=== PATIENT | female | born 1965 | race Caucasian/White ===

== ENCOUNTER 2024-01-04 05:11 | Inpatient (IN) | payer MEDICARE, SELFPAY ==
[2024-01-04] VITALS (17 sets, daily range): BP systolic 128–173; BP diastolic 74–105; PULSE 60–109; RESP 12–18; TEMP 35.9–36.6; O2SAT 93–100; BMI 21.4
--- NOTE | ~2024-01-04 | XR_ITS ---
INTRAOPERATIVE FLUOROSCOPY: CLINICAL HISTORY: 58 years old Female; LEFT IT NAIL HIP REPAIR PROCEDURE COMMENTS: Limited intraoperative fluoroscopy of the left hip was performed. CUMULATIVE DOSE: 30 mGy FLUOROSCOPY TIME: 124 seconds FINDINGS/IMPRESSION: Please refer to operative note for further details. Reviewed, dictated and finalized at location A. B OPERATOR
--- NOTE | ~2024-01-04 | XR_ITS ---
XR hip LT 2V w AP pelvis Ordering provider: Get Brady MD History: . LT HIP FRACTURE . Comparison: None. FINDINGS: BONES: Fracture of the left femoral neck adjacent to the intertrochanteric area. HIP JOINT SPACES: Bilateral narrowing of the hip joints. SACROILIAC JOINT SPACES/LUMBAR SPINE: The sacroiliac joint spaces are normal. Mild degenerative vasquez es of the visualized lower lumbar spine with postoperative changes. PUBIC SYMPHYSIS: Normal. SOFT TISSUES: Normal. IMPRESSION: Fracture left femoral neck with angulation. The angulation is about 90 degrees.. Reviewed, dictated and finalized at location A. ERY ATTENDANT IMPRESSION: Fracture left femoral neck with angulation. The angulation is about 90 degrees. .
--- NOTE | 2024-01-04 04:56 | ADMGEN ---
This patient, Indigo Alaniz, was admitted to [facility] Surg Room 316-02. Patient/family oriented to hospital policies and general routines including ID bracelet, bed and alarms, visiting hours, pain management, procedures, bathroom and other care routines, personal items, smoking policy, room service/diet, and visiting hours. Information on how to activate the Rapid Response Team has been discussed. Patient/Family are encouraged to report perceived risks to care and to ask questions if they do not understand what they are told or what they should do.
[2024-01-04] MEDS: MORPHINE SULFATE (*CRX) 2 MG/ML INJ IV PUSH ×2 (06:10→09:40)
[2024-01-04 06:14] LABS: Basophils Percent Auto 0.4 % (0.2-1.2); Eosinophils Absolute Auto 0.1 K/mm3 (0-0.3); Hemoglobin 11.9 g/dL (12.0-15.0); Immature Granulocyte Absolute 0.03 K/mm3 (0.00-0.031); Immature Granulocyte Percent A 0.6 % (0-0.5); Lymphocytes Absolute Auto 0.89 K/mm3 (0.9-3.2); Lymphocytes Percent Auto 18.1 % (18.3-44.2); Mean Corpuscular HGB Conc 32.2 g/dl (32-36); Mean Corpuscular Hemoglobin 34.4 pg (26-34); Mean Corpuscular Volume 106.9 fl (80-100); Mean Platelet Volume 9.1 fl (7.4-10.4); Monocytes Absolute Auto 0.5 K/mm3 (0.1-0.6); Monocytes Percent Auto 10.5 % (2.6-8.5); Neutrophils Absolute Auto 3.4 K/mm3 (1.3-6.7); Neutrophils Percent Auto 69.4 % (45.5-73.1); Platelet Count Result 226 k/mm3 (150-375); Red Blood Count 3.46 M/mm3 (4.2-5.4); Red Cell Distribution Width 13.2 % (11.5-14.5); White Blood Count 4.9 K/mm3 (4.5-10.0)
[2024-01-04 06:25] LABS: INR 0.9; Prothrombin Time 12.6 Seconds (11.1-14.7)
[2024-01-04 06:34] LABS: Anion Gap 10 mmol/L (4-12); Blood Urea Nitrogen 14 mg/dL (7-17); Calcium 9.2 mg/dL (8.4-10.2); Carbon Dioxide 25 mmol/L (22-30); Chloride 101 mmol/L (98-107); Estimated CRCL calculation 69 ml/min; Estimated Glomerular Filt Rate > 60; Glucose 77 mg/dL (65-110); Magnesium 1.7 mg/dL (1.6-2.3); Phosphorus 3.7 mg/dL (2.5-4.5); Potassium 4.2 mmol/L (3.4-5.0); Sodium 136 mmol/L (137-145)
[2024-01-04 06:45] LABS: Add Urine Microscopic? YES; Appearance Urine Clear (Clear); Bacteria Urine 4+ /hpf; Bilirubin Urine Negative (Negative); Blood Urine Negative (Negative); Color Urine Yellow (Yellow); Glucose Urine UA Negative (Negative); Ketones Urine Negative (Negative); Leukocyte Esterase Ur 1+ LEU/UL (Negative); Nitrate Urine Positive (Negative); Protein Urine Negative (Negative); RBC Urine 0-2 /hpf (0-2); Specific Grav Ur 1.009 (1.001-1.035); Squamous Epithelial Cell Urine None Seen /hpf (Few); Urobilinogen Urine 0.2 mg/dL (<2.0); pH Urine 5.5 (5.0-9.0)
[2024-01-04] MEDS: DEXTROSE 5%/0.45% SOD CHL 1,000 ML 100 ML IV CONT (07:03)
[2024-01-04 07:08] LABS: Macrocytosis 1+ (NORMAL); Platelet Estimate Adequate (Adequate); Schistocytes None Seen
--- NOTE | 2024-01-04 09:21 | PM.CNOR ---
Assessment and Plan Assessment and plan (1) Intertrochanteric fracture of left femur: Qualifiers: Encounter type: initial encounter Fracture type: closed Fracture alignment: displaced Qualified Code(s): S72.142A - Displaced intertrochanteric fracture of left femur, initial encounter for closed fracture Code(s): S72.142A - Displaced intertrochanteric fracture of left femur, initial encounter for closed fracture Status: Acute Assessment and Plan: Patient is a 58-year-old female who fell yesterday and sustained a displaced left intertrochanteric hip fracture. The fracture involves the medial aspect of the greater trochanter and the superior aspect of the lesser trochanter so it is categorized as an intertrochanteric hip fracture. There is mild comminution of the lesser trochanter. Her laboratory studies and urinalysis suggests that she may have a urinary tract infection. Cultures are pending. She had 4+ urine bacteria and 6-10 white blood cells per high-powered field. She has a history of lumbar fusion and has hardware in the lumbar spine posterior instrumentation with pedicle screws. Her current medications include hydrocodone 10 mg 4 times a day as needed clonazepam gabapentin citalopram atorvastatin amitriptyline losartan metoprolol omeprazole. Physical exam On exam she was alert and oriented pleasant female and fairly comfortable as long as she has not moved. The left leg is externally rotated and shortened. She has intact sensation in wiggles her toes up and down the left foot and had palpable pedal pulses. She complains of pain around the left hip and denies any other injury. There was no swelling in the lower extremity. Assessment and plan Patient has a displaced intertrochanteric left hip fracture. I have discussed options with her and I would recommend open reduction internal fixation with a trochanteric nail device for this fracture pattern. Risks of surgery were discussed with her in detail. She will require a workup for osteoporosis. Will proceed later this afternoon. History of Present Illness HPI Consult date: 01/04/24 Chief complaint: Hip fracture [facility] Family History Family History (Updated 01/04/24 @ 05:06 by Aparna Cuellar RN) Sibling Breast cancer Uterine cancer Mother Lung cancer Father Cerebrovascular accident Other Cancer Social History Social History Smoking status: Former smoker Drinks per week: 7 Do You Feel Safe in your Home?: No Lack of Transportation: No Lack of Food: Never True Current Housing: I Have Housing Concerned About Future Housing: No Difficulty Paying Gas/Electric Bills: No Difficulty Paying for Meds: No Currently Unemployed: No Education: Bachelor's Degree Difficulty w/ Childcare or Family Care: No Spiritual care concerns: No Meds Home Medications and Allergies Home Medications Medication Instructions Recorded Confirmed Type amitriptyline 10 mg tablet 10 mg PO HS 01/04/24 01/04/24 History atorvastatin 40 mg tablet 40 mg PO HS 01/04/24 01/04/24 History citalopram 20 mg tablet 20 mg PO DAILY 01/04/24 01/04/24 History clonazepam 1 mg tablet 1 mg PO BID 01/04/24 01/04/24 History gabapentin 300 mg capsule 300 mg PO TID 01/04/24 01/04/24 History hydrocodone 10 mg-acetaminophen 1 tablet PO Q6H PRN Pain 01/04/24 01/04/24 History 325 mg tablet losartan 25 mg tablet 25 mg PO DAILY 01/04/24 01/04/24 History metoprolol tartrate 25 mg tablet 25 mg PO BID 01/04/24 01/04/24 History omeprazole 20 mg capsule,delayed 20 mg PO DAILY 01/04/24 01/04/24 History release Allergies Allergy/AdvReac Type Severity Reaction Status Date / Time No Known Allergies Allergy Verified 01/04/24 05:21 Vital Signs Vital Signs - 24 hr 01/04/24 04:54 01/04/24 06:00 Temperature 36.2 C L Pulse Rate 78 Respiratory Rate 16 Blood Pressure 173/93 H Pulse Oximetry 97 Oxygen Delivery Room Air Results Labs 01/04/24 06:03 01/04/24 06:03 Labs: Abnormal lab results 01/04/24 01/04/24 Range/Units 06:03 06:17 RBC 3.46 L (4.2-5.4) M/mm3 Hgb 11.9 L (12.0-15.0) g/dL MCV 106.9 H (80-100) fl MCH 34.4 H (26-34) pg Immature Gran % (Auto) 0.6 H (0-0.5) % Lymph % (Auto) 18.1 L (18.3-44.2) % [place] % (Auto) 10.5 H (2.6-8.5) % Lymph # (Auto) 0.89 L (0.9-3.2) K/mm3 Sodium 136 L (137-145) mmol/L Urine Nitrate Positive H (Negative) Leukocyte Esterase Rfl 1+ H (Negative) JI/UL Urine WBC 6-10 H (0-3) /hpf Urine Bacteria 4+ H /hpf H & H 01/04/24 Range/Units 06:03 Hgb 11.9 L (12.0-15.0) g/dL Hct 37.0 (37.0-47.0) % Coagulation 01/04/24 Range/Units 06:03 INR 0.9 All other labs normal.
--- NOTE | 2024-01-04 09:37 | ECG_ITS ---
Test Date: 2024-01-04 09:59:07 Measurements Intervals Strang Rate: 95 P: 53 MT: 156 QRS: 55 QRSD: 86 T: 30 QT: 359 QTc: 452 Interpretive Statements SINUS RHYTHM LEFT ATRIAL ENLARGEMENT INCOMPLETE RIGHT BUNDLE BRANCH BLOCK ST DEVIATION AND MODERATE T-WAVE ABNORMALITY, CONSIDER ANT/INF ISCHEMIA BASELINE ARTIFACT- I, II, III, AVR, AVL ,AVF, V1-V6 ABNORMAL ECG No previous ECG available for comparison Electronically Signed On 01-04-2024 10:08:34 MOTION PI[employer]URE [employer]ITIC by Peter Rush D.O.
--- NOTE | 2024-01-04 09:53 | PM.IMHP ---
H&P: HPI History of Present Illness Date/Time: 01/04/24 09:53 <Matheus Guajardo MD - Last Filed: 01/04/24 18:18> Chief Complaint: Fall <Matheus Guajardo MD - Last Filed: 01/04/24 18:18> Narrative: Patient is a 58-year-old female who fell yesterday and sustained a displaced left intertrochanteric hip fracture. The fracture involves the medial aspect of the greater trochanter and the superior aspect of the lesser trochanter so it is categorized as an intertrochanteric hip fracture. There is mild comminution of the lesser trochanter. Her laboratory studies and urinalysis suggests that she may have a urinary tract infection. Cultures are pending. She had 4+ urine bacteria and 6-10 white blood cells per high-powered field. She has a history of lumbar fusion and has hardware in the lumbar spine posterior instrumentation with pedicle screws. Patient reports of performing remote Dexa scan but doesn't remember the details. Patient denies any urinary sx. <Matheus Guajardo MD - Last Filed: 01/04/24 18:18> Patient is a 58-year-old female who fell yesterday and sustained a displaced left intertrochanteric hip fracture. The fracture involves the medial aspect of the greater trochanter and the superior aspect of the lesser trochanter so it is categorized as an intertrochanteric hip fracture. There is mild comminution of the lesser trochanter. Her laboratory studies and urinalysis suggests that she may have a urinary tract infection. Cultures are pending. She had 4+ urine bacteria and 6-10 white blood cells per high-powered field. She has a history of lumbar fusion and has hardware in the lumbar spine posterior instrumentation with pedicle screws. Patient reports of performing remote Dexa scan but doesn't remember the details. Patient denies any urinary sx. <Get Brady MD - Last Filed: 01/04/24 12:46> [facility] Family History Family History: Family History Sibling Breast cancer Uterine cancer Mother Lung cancer Father Cerebrovascular accident Other Cancer <Matheus Guajardo MD - Last Filed: 01/04/24 18:18> Social History Social History: Social History Smoking status: Former smoker Drinks per week: 7 Do You Feel Safe in your Home?: No Lack of Transportation: No Lack of Food: Never True Current Housing: I Have Housing Concerned About Future Housing: No Difficulty Paying Gas/Electric Bills: No Difficulty Paying for Meds: No Currently Unemployed: No Education: Bachelor's Degree Difficulty w/ Childcare or Family Care: No Spiritual care concerns: No <Matheus Guajardo MD - Last Filed: 01/04/24 18:18> Meds Home Medications and Allergies Home medications: Home Medications Medication Instructions Recorded Confirmed Type amitriptyline 10 mg tablet 10 mg PO HS 01/04/24 01/04/24 History atorvastatin 40 mg tablet 40 mg PO HS 01/04/24 01/04/24 History citalopram 20 mg tablet 20 mg PO DAILY 01/04/24 01/04/24 History clonazepam 1 mg tablet 1 mg PO BID 01/04/24 01/04/24 History gabapentin 300 mg capsule 300 mg PO TID 01/04/24 01/04/24 History hydrocodone 10 mg-acetaminophen 1 tablet PO Q6H PRN Pain 01/04/24 01/04/24 History 325 mg tablet losartan 25 mg tablet 25 mg PO DAILY 01/04/24 01/04/24 History metoprolol tartrate 25 mg tablet 25 mg PO BID 01/04/24 01/04/24 History omeprazole 20 mg capsule,delayed 20 mg PO DAILY 01/04/24 01/04/24 History release <Matheus Guajardo MD - Last Filed: 01/04/24 18:18> Allergies/Adverse reactions: Allergies Allergy/AdvReac Type Severity Reaction Status Date / Time No Known Allergies Allergy Verified 01/04/24 11:49 <Matheus Guajardo MD - Last Filed: 01/04/24 18:18> Vital Signs Vital Signs - 24 hr 01/04/24 04:54 01/04/24 06:00 Temperature 97.1 F L Pulse Rate 78 Respiratory Rate 16 Blood Pressure 173/93 H Pulse Oximetry 97 Oxygen Delivery Room Air <Matheus Guajardo MD - Last Filed: 01/04/24 18:18> H&P: Results Labs Labs: Short CBC 01/04/24 Range/Units 06:03 WBC 4.9 (4.5-10.0) K/mm3 Hgb 11.9 L (12.0-15.0) g/dL Hct 37.0 (37.0-47.0) % Plt Count 226 (150-375) k/mm3 BMP 01/04/24 06:03 Sodium 136 L Potassium 4.2 Chloride 101 Carbon Dioxide 25 BUN 14 Creatinine 0.70 Glucose 77 Calcium 9.2 Urine 01/04/24 Range/Units 06:17 Urine Color Yellow (Yellow) Urine Appearance Clear (Clear) Urine pH 5.5 (5.0-9.0) Ur Specific [place] 1.009 (1.001-1.035) Urine Protein Negative (Negative) mg/dL Urine Glucose (UA) Negative (Negative) mg/dL <Matheus Guajardo MD - Last Filed: 01/04/24 18:18> Assessment and Plan Assessment and plan (1) Intertrochanteric fracture of left femur: Qualifiers: Encounter type: initial encounter Fracture alignment: displaced Fracture type: closed Qualified Code(s): S72.142A - Displaced intertrochanteric fracture of left femur, initial encounter for closed fracture <Matheus Guajardo MD - Last Filed: 01/04/24 18:18> Code(s): S72.142A - Displaced intertrochanteric fracture of left femur, initial encounter for closed fracture <Matheus Guajardo MD - Last Filed: 01/04/24 18:18> Status: Acute <Matheus Guajardo MD - Last Filed: 01/04/24 18:18> Assessment and Plan: Patient is a 58-year-old female who fell yesterday and sustained a displaced left intertrochanteric hip fracture. The fracture involves the medial aspect of the greater trochanter and the superior aspect of the lesser trochanter so it is categorized as an intertrochanteric hip fracture. There is mild comminution of the lesser trochanter. Patient has a displaced intertrochanteric left hip fracture. Open reduction internal fixation with a trochanteric nail device for this fracture pattern. <Matheus Guajardo MD - Last Filed: 01/04/24 18:18> (2) Osteoporosis: Code(s): M81.0 - Age-related osteoporosis without current pathological fracture <Matheus Guajardo MD - Last Filed: 01/04/24 18:18> Status: Acute <Matheus Guajardo MD - Last Filed: 01/04/24 18:18> Assessment and Plan: Fragility fracture from a fall DEXA as OP Consider Bisphosphonates upto 5 years if oral or 3 years if IV OR Consider Denosumab injections x 6 months <Matheus Guajardo MD - Last Filed: 01/04/24 18:18> (3) UTI (urinary tract infection): Code(s): N39.0 - Urinary tract infection, site not specified <Matheus Guajardo MD - Last Filed: 01/04/24 18:18> Status: Acute <Matheus Guajardo MD - Last Filed: 01/04/24 18:18> Assessment and Plan: UA reviewed UC obtained. No sx warrants no tx <Matheus Guajardo MD - Last Filed: 01/04/24 18:18> Hospitalist MIPS Advance Care Plan I have confirmed that the patient's Advanced Care Plan is present, code status is documented, or surrogate decision maker is listed in patient medical record.: Yes <Matheus Guajardo MD - Last Filed: 01/04/24 18:18> Medication Reconciliation I have utilized all available resources to obtain, update and review the patients current medications (includes all prescriptions, OTC, herbals, cannabis, and nutritional supplements).: Yes <Matheus Guajardo MD - Last Filed: 01/04/24 18:18>
--- NOTE | 2024-01-04 10:48 | PC.NURSE ---
To OR per [ ], IV [ ]. Report given to [DEVIN ].
[2024-01-04] MEDS: VANCOMYCIN 1,000 MG/NS 250 ML BAG 250 MG IVPB (11:00)
[2024-01-04] MEDS: TRANEXAMIC ACID 1,000MG/ISO100 1,000 MG/100 ML BAG 200 MG IVPB (11:47)
--- NOTE | 2024-01-04 12:07 | WPDHPUPDATE1 ---
History and Physical Update Update Date/Time: 01/04/24 12:07 History and Physical has been reviewed, including an updated exam of the patient. There are NO changes in the patient's condition. Risks, benefits, and alternatives have been discussed and questions answered. Patient agrees to proceed with procedure.
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
[2024-01-04] MEDS: ceFAZolin 2 GM/D5W 50 ML 2 GM/50 ML BAG IVPB ×2 (12:53→18:04)
[2024-01-04] MEDS: LACTATED RINGERS 1,000 ML 30 ML IV CONT (14:25)
--- NOTE | 2024-01-04 14:48 | P.OP_ITS ---
Procedure Note - Detailed Date of Procedure 01/04/24 Pre-op Diagnosis Left intertrochanteric hip fracture Post-op Diagnosis Same Procedure Performed Open reduction internal fixation left intertrochanteric hip fracture with Arthrex short trochanteric nail device with distal interlocking Surgeon Get Brady MD Sales Contracts Analyst Danielle Anesthesia General Description of Procedure Patient was brought to the operating room and general anesthesia was administered. She was transferred to the fracture table. The left hip and thigh was carefully scrubbed with the chlorhexidine clot. She was given 2 g Ancef weight based vancomycin 1 g of TXA preoperatively. The left foot was padded and placed in the traction boot the right hip flexed and abducted out of the way. The left leg was placed in neutral rotation and traction was applied and fluoro was brought in to assess the reduction which was adequate and out to length without significant translational displacement. The hip and thigh was prepped with DuraPrep cover with the shower curtain and A 2 in incision was made proximal to greater trochanter guide pin inserted the tip greater trochanter into the canal the starter Reamer used to create an entrance hole and the canal reamed to 11 mm which gave significant chatter. We chose the 9 mm 130 degree Arthrex nail which was inserted fully under manual pressure. A guide pin was inserted at the center of the femoral head on AP and lateral views. I felt that she was too small to accommodate a anti rotation screw particularly with her higher than average valgus neck angle. A 90 mm lag screw was placed to about 8 mm from subchondral bone inserted flush with the lateral cortex locked to the nadia with locking sleeve and the activation pin was removed and a distal interlocking screw was placed in the static mode without difficulty. The wounds were irrigated with antibiotic solution. The skin was closed with 2 subcutaneous Vicryl and juan. EBL was about 100 cc. She was transferred to postop recovery room in stable condition. Due to her asymptomatic ST depression noted preoperatively by Anesthesia I have ordered a 12 lead EKG to make sure there are no changes and will order a series of troponin levels to make sure there is no evidence of cardiac injury. [facility] Billing Surgery - Charge Forward: Surgery Billing (Trochanteric nail fixation right intertrochanteric hip fracture.)
--- NOTE | 2024-01-04 14:54 | ECG_ITS ---
Test Date: 2024-01-04 15:05:07 Measurements Intervals Joes Rate: 79 P: 73 AL: 158 QRS: 42 QRSD: 88 T: 9 QT: 409 QTc: 471 Interpretive Statements SINUS RHYTHM POSSIBLE LEFT ATRIAL ENLARGEMENT INCOMPLETE RIGHT BUNDLE BRANCH BLOCK ST-T WAVE ABNORMALITY IN ANTERIOR LEADS- CONSIDER ISCHEMIA BASELINE ARTIFACT- I, II, III, AVR, AVL, AVF, V1-V6 ABNORMAL ECG Compared to ECG 01/04/2024 09:59:07 NO SIGNIFICANT CHANGE Electronically Signed On 01-04-2024 15:10:55 LAUNCHING PAD MECHANIC by Peter Rush D.O.
[2024-01-04] MEDS: fentaNYL CITRATE INJ (*CRX) 100 MCG/2 ML VIAL 25 MCG IV PUSH ×5 (14:55→15:24)
--- NOTE | 2024-01-04 15:26 | SUR.PHASEI ---
ST depression present on monitor and according to [employer] monitor was reading ST depression in OR as well. Per Dr Jose Antonio SHAFFER troponin series and stat EKG ordered.
[2024-01-04 15:42] LABS: Troponin I 0.022 ng/mL (0.000-0.034)
--- NOTE | 2024-01-04 16:17 | PC.NURSE ---
Returned from OR per [ ]. Report received from [TRAVIS].
[2024-01-04] MEDS: HYDROcodone/acetaminophen (*CRX) 10-325 MG TABLET 1 TAB PO ×2 (16:48→22:11)
[2024-01-04] MEDS: SENNA/DOCUSATE SODIUM TABLET 2 TAB PO (16:50)
[2024-01-04] MEDS: clonazePAM (*CRX) 0.5 MG TABLET 1 MG PO (16:50)
[2024-01-04] MEDS: METOPROLOL TARTRATE 25 MG TABLET PO (16:51)
[2024-01-04] MEDS: SODIUM CHLORIDE 0.9% IV 1,000 ML 125 ML IV CONT (16:52)
[2024-01-04] MEDS: GABAPENTIN 300 MG CAPSULE PO (16:52)
[2024-01-04 17:15] LABS: Troponin I < 0.012 ng/mL (0.000-0.034)
[2024-01-04 20:21] LABS: Troponin I < 0.012 ng/mL (0.000-0.034)
[2024-01-04] MEDS: AMITRIPTYLINE HCL 10 MG TABLET PO (20:42)
[2024-01-04] MEDS: ATORVASTATIN 40 MG TABLET PO (20:42)
[2024-01-04] MEDS: VANCOMYCIN 1,000 MG/NS 250 ML 1,000 MG/250 ML BAG 250 MG IVPB (22:39)
[2024-01-05] VITALS (14 sets, daily range): BP systolic 108–176; BP diastolic 53–90; PULSE 72–95; RESP 16–18; TEMP 36.3–36.7; O2SAT 92–100
[2024-01-05] MEDS: ceFAZolin 2 GM/D5W 50 ML 2 GM/50 ML BAG IVPB ×2 (03:00→11:13)
[2024-01-05] MEDS: HYDROcodone/acetaminophen (*CRX) 10-325 MG TABLET 1 TAB PO ×4 (04:24→23:54)
[2024-01-05 06:45] LABS: Basophils Percent Auto 0.2 % (0.2-1.2); Hematocrit 27.5 % (37.0-47.0); Hemoglobin 8.5 g/dL (12.0-15.0); Immature Granulocyte Absolute 0.04 K/mm3 (0.00-0.031); Immature Granulocyte Percent A 0.8 % (0-0.5); Lymphocytes Absolute Auto 0.32 K/mm3 (0.9-3.2); Lymphocytes Percent Auto 6.8 % (18.3-44.2); Mean Corpuscular HGB Conc 30.9 g/dl (32-36); Mean Corpuscular Hemoglobin 33.6 pg (26-34); Mean Corpuscular Volume 108.7 fl (80-100); Mean Platelet Volume 9.5 fl (7.4-10.4); Monocytes Absolute Auto 0.6 K/mm3 (0.1-0.6); Monocytes Percent Auto 12.3 % (2.6-8.5); Neutrophils Absolute Auto 3.8 K/mm3 (1.3-6.7); Neutrophils Percent Auto 79.9 % (45.5-73.1); Platelet Count Result 219 k/mm3 (150-375); Red Blood Count 2.53 M/mm3 (4.2-5.4); Red Cell Distribution Width 12.9 % (11.5-14.5); White Blood Count 4.7 K/mm3 (4.5-10.0)
[2024-01-05 07:07] LABS: Alanine Aminotransferase 13 U/L (6-35); Albumin Level 3.2 g/dL (3.5-5.1); Alkaline Phosphatase 70 U/L (38-126); Anion Gap 8 mmol/L (4-12); Aspartate Amino Transferase 27 U/L (14-36); Bilirubin,Total 0.3 mg/dL (0.2-1.3); Blood Urea Nitrogen 11 mg/dL (7-17); Calcium 8.2 mg/dL (8.4-10.2); Carbon Dioxide 24 mmol/L (22-30); Chloride 103 mmol/L (98-107); Estimated CRCL calculation 79 ml/min; Estimated Glomerular Filt Rate > 60; Glucose 118 mg/dL (65-110); Potassium 4.3 mmol/L (3.4-5.0); Sodium 135 mmol/L (137-145)
[2024-01-05 08:06] LABS: Large Platelets Present; Platelet Estimate Adequate (Adequate)
[2024-01-05 08:08] LABS: Hypochromasia 1+; Target Cells 1+
[2024-01-05 08:09] LABS: Schistocytes None Seen
[2024-01-05] MEDS: polyethylene glycoL 3350 17 GM POWD.PACK PO (08:53)
[2024-01-05] MEDS: CITALOPRAM HYDROBROMIDE 20 MG TABLET PO (08:54)
[2024-01-05] MEDS: APIXABAN 2.5 MG TABLET PO ×2 (08:54→20:29)
[2024-01-05] MEDS: SENNA/DOCUSATE SODIUM TABLET 2 TAB PO (08:54)
[2024-01-05] MEDS: METOPROLOL TARTRATE 25 MG TABLET PO ×2 (08:54→17:12)
[2024-01-05] MEDS: GABAPENTIN 300 MG CAPSULE PO ×3 (08:54→17:12)
[2024-01-05] MEDS: PANTOPRAZOLE 40 MG TABLET PO (08:54)
[2024-01-05] MEDS: clonazePAM (*CRX) 0.5 MG TABLET 1 MG PO ×2 (08:55→17:12)
[2024-01-05] MEDS: LOSARTAN POTASSIUM 25 MG TABLET PO (08:55)
--- NOTE | 2024-01-05 10:21 | WPDANESPN ---
Anes - Prog Note Post-Op Date/Time: 01/05/24 10:21 Cardiovascular status: normal Respiratory status: normal Airway patency: baseline Mental status: baseline Post-Op hydration status: normal Vital Signs: Last Vital Signs Temp 36.5 C 01/05/24 05:57 Pulse 95 01/05/24 08:54 Resp 16 01/05/24 05:57 BP 108/53 L 01/05/24 05:57 Pulse Ox 92 01/05/24 05:57 O2 Del Method Room Air 01/05/24 09:00 O2 Flow Rate 8 01/04/24 14:55 Pain Score (VAS): 06/07 I/O: Intake & Output 01/04/24 01/05/24 01/05/24 23:59 07:59 15:59 Intake Total 920 1000 240 Output Total 900 Balance 920 100 240 Laboratory Tests 01/05/24 06:23 01/05/24 06:23 01/04/24 01/04/24 01/04/24 06:03 14:57 16:43 WBC RBC Hgb Hct MCV MCH MCHC RDW Plt Count MPV Immature Gran % (Auto) Neut % (Auto) Lymph % (Auto) [place] % (Auto) Eos % (Auto) Baso % (Auto) Lymph # (Auto) [place] # (Auto) Eos # (Auto) Baso # (Auto) Abs Immat Gran (auto) Absolute Neuts (auto) Absolute Nucleated RBC Nucleated RBC % Platelet Estimate Large Platelets Hypochromasia Target Cells Schistocytes Sodium Potassium Chloride Carbon Dioxide Anion Gap BUN Creatinine Estim Creat Clear Calc Estimated GFR Glucose Calcium Total Bilirubin AST ALT Alkaline Phosphatase Troponin I 0.022 < 0.012 D Total Protein Albumin Blood Type A Positive Antibody Screen Negative 01/04/24 01/05/24 19:49 06:23 WBC 4.7 RBC 2.53 L Hgb 8.5 L D Hct 27.5 L MCV 108.7 H MCH 33.6 MCHC 30.9 L RDW 12.9 Plt Count 219 MPV 9.5 Immature Gran % (Auto) 0.8 H Neut % (Auto) 79.9 H Lymph % (Auto) 6.8 L [place] % (Auto) 12.3 H Eos % (Auto) 0.0 Baso % (Auto) 0.2 Lymph # (Auto) 0.32 L [place] # (Auto) 0.6 Eos # (Auto) 0.0 Baso # (Auto) 0.0 Abs Immat Gran (auto) 0.04 H Absolute Neuts (auto) 3.8 Absolute Nucleated RBC 0.000 Nucleated RBC % 0.0 Platelet Estimate Adequate Large Platelets Present Hypochromasia 1+ Target Cells 1+ Schistocytes None seen Sodium 135 L Potassium 4.3 Chloride 103 Carbon Dioxide 24 Anion Gap 8 BUN 11 Creatinine 0.60 L Estim Creat Clear Calc 79 Estimated GFR > 60 Glucose 118 H Calcium 8.2 L Total Bilirubin 0.3 AST 27 ALT 13 Alkaline Phosphatase 70 Troponin I < 0.012 Total Protein 6.0 L Albumin 3.2 L Blood Type Antibody Screen Post-procedural complaints: none Patient Feedback: Patient satisfied with anesthetic care.
[2024-01-05] MEDS: VANCOMYCIN 1,000 MG/NS 250 ML 1,000 MG/250 ML BAG 150 MG IVPB (11:52)
--- NOTE | 2024-01-05 14:17 | PM.PNORT ---
Progress Note: A&P Assessment and Plan (1) Intertrochanteric fracture of left femur: Qualifiers: Encounter type: initial encounter Fracture type: closed Fracture alignment: displaced Qualified Code(s): S72.142A - Displaced intertrochanteric fracture of left femur, initial encounter for closed fracture Code(s): S72.142A - Displaced intertrochanteric fracture of left femur, initial encounter for closed fracture Status: Acute Assessment and Plan: Patient is postop day 1. After trochanteric nail fixation of left intertrochanteric hip fracture. She is quite comfortable at rest. She notes that she is unable to actively lift the left leg off the bed and I explained to her that this is due to the fact that the ileus flexes the hip is attached to the lesser trochanter which has fracture lines in it so that will be too painful until it is healed which will be about 6 week Her wounds are dry. Her hemoglobin today is 8.5. We will check labs again tomorrow. Nothing is available with respect to the urine culture yet which is unusual. She is considering going to the [facility] a intensive physical therapy very beneficial for her given her pre-injury limitations. Subjective Subjective Date/Time Seen: 01/05/24 14:17 Objective Data Vital Signs Vital Signs: Vital Signs - 24 hr 01/04/24 14:25 01/04/24 14:40 01/04/24 14:55 Temperature 36.4 C Pulse Rate 89 88 83 Respiratory Rate 13 14 12 Blood Pressure 169/105 H 172/102 H 168/105 H Pulse Oximetry 100 100 100 Oxygen Delivery Simple Face Mask Simple Face Mask Simple Face Mask Oxygen Flow Rate 8 8 8 01/04/24 15:10 01/04/24 15:25 01/04/24 15:40 Temperature Pulse Rate 83 88 88 Respiratory Rate 12 15 16 Blood Pressure 161/93 H 151/90 H 144/89 H Pulse Oximetry 98 94 96 Oxygen Delivery Room Air Room Air Room Air Oxygen Flow Rate 01/04/24 15:55 01/04/24 16:10 01/04/24 16:20 Temperature 36.6 C 35.9 C L Pulse Rate 91 89 95 Respiratory Rate 14 14 16 Blood Pressure 147/90 H 151/88 H 154/88 H Pulse Oximetry 93 94 100 Oxygen Delivery Room Air Room Air Oxygen Flow Rate 01/04/24 16:51 01/04/24 16:35 01/04/24 17:57 Temperature 36.2 C L 36.0 C L Pulse Rate 98 92 72 Respiratory Rate 17 18 Blood Pressure 151/74 H 144/75 H Pulse Oximetry 98 95 Oxygen Delivery Oxygen Flow Rate 01/04/24 20:00 01/04/24 22:15 01/05/24 00:00 Temperature 36.6 C Pulse Rate 60 75 73 Respiratory Rate 16 Blood Pressure 159/85 H Pulse Oximetry 94 Oxygen Delivery Oxygen Flow Rate 01/05/24 04:00 01/04/24 21:45 01/05/24 01:57 Temperature 36.5 C Pulse Rate 73 72 Respiratory Rate 18 Blood Pressure 147/77 H Pulse Oximetry 94 95 Oxygen Delivery Room Air Oxygen Flow Rate 01/05/24 05:57 01/05/24 08:29 01/05/24 08:54 Temperature 36.5 C Pulse Rate 85 95 Respiratory Rate 16 Blood Pressure 108/53 L Pulse Oximetry 92 Oxygen Delivery Room Air Oxygen Flow Rate 01/05/24 09:00 01/05/24 08:00 01/05/24 08:52 Temperature Pulse Rate 89 Respiratory Rate Blood Pressure Pulse Oximetry Oxygen Delivery Room Air Room Air Oxygen Flow Rate 01/05/24 09:57 01/05/24 12:00 01/05/24 13:57 Temperature 36.7 C 36.3 C L Pulse Rate 88 90 74 Respiratory Rate 18 18 Blood Pressure 176/90 H 139/88 Pulse Oximetry 99 97 Oxygen Delivery Oxygen Flow Rate Intake/Output Intake/Output: Intake & Output 01/02/24 01/03/24 01/04/24 01/05/24 23:59 23:59 23:59 23:59 Intake Total 1220 1530 Output Total 900 Balance 1220 630 Meds/Results Medications: Active Medications Generic Name Dose Route Start Last Admin Trade Name Freq PRN Reason Stop Dose Admin Hydrocodone Bitart/Acetaminophen 1 tab 01/04/24 16:12 01/05/24 11:13 Hydrocodone/Acetaminophen (*Crx) 10-325 Mg Tablet PO 1 tab Q6H PRN Administration Pain Al Hydrox/Mg Hydrox/Simethicone 30 ml 01/04/24 05:11 Mag Hydrox/Al Hydrox/Simeth 30 Ml Udc PO QID PRN Dyspepsia Amitriptyline HCl 10 mg 01/04/24 21:00 01/04/24 20:42 Amitriptyline Hcl 10 Mg Tablet PO 10 mg HS GLENN Administration Apixaban 2.5 mg 01/05/24 09:00 01/05/24 08:54 Apixaban 2.5 Mg Tablet PO 2.5 mg Q12HR GLENN Administration Atorvastatin Calcium 40 mg 01/04/24 21:00 01/04/24 20:42 Atorvastatin 40 Mg Tablet PO 40 mg HS GLENN Administration Citalopram Hydrobromide 20 mg 01/05/24 09:00 01/05/24 08:54 Citalopram Hydrobromide 20 Mg Tablet PO 20 mg DAILY GLENN Administration Clonazepam 1 mg 01/04/24 17:00 01/05/24 08:55 Clonazepam (*Crx) 0.5 Mg Tablet PO 1 mg BID GLENN Administration Gabapentin 300 mg 01/04/24 17:00 01/05/24 12:37 Gabapentin 300 Mg Capsule PO 300 mg TID GLENN Administration Sodium Chloride 1,000 mls @ 125 mls/hr 01/04/24 16:12 01/05/24 04:24 Normal Saline Iv IV CONT Infused .Q8H GLENN Infusion Losartan Potassium 25 mg 01/05/24 09:00 01/05/24 08:55 Losartan Potassium 25 Mg Tablet PO 25 mg DAILY GLENN Administration Magnesium Hydroxide 30 ml 01/04/24 05:11 Magnesium Hydroxide Susp 30 Ml Udc PO DAILY PRN Constipation Metoprolol Tartrate 25 mg 01/04/24 17:00 01/05/24 08:54 Metoprolol Tartrate 25 Mg Tablet PO 25 mg BID GLENN Administration Morphine Sulfate 2 mg 01/04/24 05:11 01/04/24 09:40 Morphine Sulfate (*Crx) 2 Mg/Ml Inj IV PUSH 2 mg Q4H PRN Administration Pain Rated 7-10 Naloxone HCl 0.1 mg 01/04/24 16:12 Naloxone Hcl 0.4 Mg/Ml Vial IV PUSH Q2M PRN Opiate Reversal Pantoprazole Sodium 40 mg 01/05/24 09:00 01/05/24 08:54 Pantoprazole 40 Mg Tablet PO 40 mg QAM GLENN Administration Polyethylene Glycol 17 gm 01/05/24 09:00 01/05/24 08:53 Polyethylene Glycol 3350 17 Gm Powd.Pack PO 17 gm QAM GELNN Administration Senna/Docusate Sodium 2 tab 01/04/24 17:00 01/05/24 08:54 Senna/Docusate Sodium Tablet PO 2 tab BID GLENN Administration Radiology Results: ITS Impressions Hip/Pelvis X-Ray 01/04/24 08:19 IMPRESSION: Fracture left femoral neck with angulation. The angulation is about 90 degrees.. Labs Labs: Laboratory Results - last 24 hr 01/04/24 01/04/24 01/04/24 14:57 16:43 19:49 WBC RBC Hgb Hct MCV MCH MCHC RDW Plt Count MPV Immature Gran % (Auto) Neut % (Auto) Lymph % (Auto) [place] % (Auto) Eos % (Auto) Baso % (Auto) Lymph # (Auto) [place] # (Auto) Eos # (Auto) Baso # (Auto) Abs Immat Gran (auto) Absolute Neuts (auto) Absolute Nucleated RBC Nucleated RBC % Platelet Estimate Large Platelets Hypochromasia Target Cells Schistocytes Sodium Potassium Chloride Carbon Dioxide Anion Gap BUN Creatinine Estim Creat Clear Calc Estimated GFR Glucose Calcium Total Bilirubin AST ALT Alkaline Phosphatase Troponin I 0.022 < 0.012 D < 0.012 Total Protein Albumin 01/05/24 06:23 WBC 4.7 RBC 2.53 L Hgb 8.5 L D Hct 27.5 L MCV 108.7 H MCH 33.6 MCHC 30.9 L RDW 12.9 Plt Count 219 MPV 9.5 Immature Gran % (Auto) 0.8 H Neut % (Auto) 79.9 H Lymph % (Auto) 6.8 L [place] % (Auto) 12.3 H Eos % (Auto) 0.0 Baso % (Auto) 0.2 Lymph # (Auto) 0.32 L [place] # (Auto) 0.6 Eos # (Auto) 0.0 Baso # (Auto) 0.0 Abs Immat Gran (auto) 0.04 H Absolute Neuts (auto) 3.8 Absolute Nucleated RBC 0.000 Nucleated RBC % 0.0 Platelet Estimate Adequate Large Platelets Present Hypochromasia 1+ Target Cells 1+ Schistocytes None seen Sodium 135 L Potassium 4.3 Chloride 103 Carbon Dioxide 24 Anion Gap 8 BUN 11 Creatinine 0.60 L Estim Creat Clear Calc 79 Estimated GFR > 60 Glucose 118 H Calcium 8.2 L Total Bilirubin 0.3 AST 27 ALT 13 Alkaline Phosphatase 70 Troponin I Total Protein 6.0 L Albumin 3.2 L
--- NOTE | 2024-01-05 14:45 | P.PNIM_ITS ---
Progress Note: A&P Assessment and Plan (1) Intertrochanteric fracture of left femur: Qualifiers: Encounter type: initial encounter Fracture alignment: displaced Fracture type: closed Qualified Code(s): S72.142A - Displaced intertrochanteric fracture of left femur, initial encounter for closed fracture Code(s): S72.142A - Displaced intertrochanteric fracture of left femur, initial encounter for closed fracture Status: Acute Assessment and Plan: Patient is a 58-year-old female who fell yesterday and sustained a displaced left intertrochanteric hip fracture. The fracture involves the medial aspect of the greater trochanter and the superior aspect of the lesser trochanter so it is categorized as an intertrochanteric hip fracture. There is mild comminution of the lesser trochanter. Patient has a displaced intertrochanteric left hip fracture. Open reduction internal fixation with a trochanteric nail device for this fracture pattern. (2) Osteoporosis: Code(s): M81.0 - Age-related osteoporosis without current pathological fracture Status: Acute Assessment and Plan: Fragility fracture from a fall DEXA as OP Consider Bisphosphonates upto 5 years if oral or 3 years if IV OR Consider Denosumab injections x 6 months (3) UTI (urinary tract infection): Code(s): N39.0 - Urinary tract infection, site not specified Status: Acute Assessment and Plan: UA reviewed UC obtained. No sx and not undergoing any urological procedure , so doesn't warrants any tx Subjective Date/time seen: 01/05/24 14:45 Interval history: Patient is postop day 1 S/P trochanteric nail fixation of left intertrochanteric hip fracture. Patient isn't having any urinary symptoms. Does not warrant any treatment since she is not undergoing any urological procedure. Objective Data Vital Signs Vital Signs: Vital Signs - 24 hr 01/04/24 14:55 01/04/24 15:10 01/04/24 15:25 Temperature Pulse Rate 83 83 88 Respiratory Rate 12 12 15 Blood Pressure 168/105 H 161/93 H 151/90 H Pulse Oximetry 100 98 94 Oxygen Delivery Simple Face Mask Room Air Room Air Oxygen Flow Rate 8 01/04/24 15:40 01/04/24 15:55 01/04/24 16:10 Temperature 98 F Pulse Rate 88 91 89 Respiratory Rate 16 14 14 Blood Pressure 144/89 H 147/90 H 151/88 H Pulse Oximetry 96 93 94 Oxygen Delivery Room Air Room Air Room Air Oxygen Flow Rate 01/04/24 16:20 01/04/24 16:51 01/04/24 16:35 Temperature 96.7 F L 97.2 F L Pulse Rate 95 98 92 Respiratory Rate 16 17 Blood Pressure 154/88 H 151/74 H Pulse Oximetry 100 98 Oxygen Delivery Oxygen Flow Rate 01/04/24 17:57 01/04/24 20:00 01/04/24 22:15 Temperature 96.8 F L 97.9 F Pulse Rate 72 60 75 Respiratory Rate 18 16 Blood Pressure 144/75 H 159/85 H Pulse Oximetry 95 94 Oxygen Delivery Oxygen Flow Rate 01/05/24 00:00 01/05/24 04:00 01/04/24 21:45 Temperature Pulse Rate 73 73 Respiratory Rate Blood Pressure Pulse Oximetry 94 Oxygen Delivery Room Air Oxygen Flow Rate 01/05/24 01:57 01/05/24 05:57 01/05/24 08:29 Temperature 97.7 F 97.7 F Pulse Rate 72 85 Respiratory Rate 18 16 Blood Pressure 147/77 H 108/53 L Pulse Oximetry 95 92 Oxygen Delivery Room Air Oxygen Flow Rate 01/05/24 08:54 01/05/24 09:00 01/05/24 08:00 Temperature Pulse Rate 95 89 Respiratory Rate Blood Pressure Pulse Oximetry Oxygen Delivery Room Air Oxygen Flow Rate 01/05/24 08:52 01/05/24 09:57 01/05/24 12:00 Temperature 98.0 F Pulse Rate 88 90 Respiratory Rate 18 Blood Pressure 176/90 H Pulse Oximetry 99 Oxygen Delivery Room Air Oxygen Flow Rate 01/05/24 13:57 Temperature 97.4 F L Pulse Rate 74 Respiratory Rate 18 Blood Pressure 139/88 Pulse Oximetry 97 Oxygen Delivery Oxygen Flow Rate Intake/Output Intake/Output: Intake & Output 01/02/24 01/03/24 01/04/24 01/05/24 23:59 23:59 23:59 23:59 Intake Total 1220 1530 Output Total 900 Balance 1220 630 Meds/Results Medications: Active Medications Generic Name Dose Route Start Last Admin Trade Name Freq PRN Reason Stop Dose Admin Hydrocodone Bitart/Acetaminophen 1 tab 01/04/24 16:12 01/05/24 11:13 Hydrocodone/Acetaminophen (*Crx) 10-325 Mg Tablet PO 1 tab Q6H PRN Administration Pain Al Hydrox/Mg Hydrox/Simethicone 30 ml 01/04/24 05:11 Mag Hydrox/Al Hydrox/Simeth 30 Ml Udc PO QID PRN Dyspepsia Amitriptyline HCl 10 mg 01/04/24 21:00 01/04/24 20:42 Amitriptyline Hcl 10 Mg Tablet PO 10 mg HS GLENN Administration Apixaban 2.5 mg 01/05/24 09:00 01/05/24 08:54 Apixaban 2.5 Mg Tablet PO 2.5 mg Q12HR GLENN Administration Atorvastatin Calcium 40 mg 01/04/24 21:00 01/04/24 20:42 Atorvastatin 40 Mg Tablet PO 40 mg HS GLENN Administration Citalopram Hydrobromide 20 mg 01/05/24 09:00 01/05/24 08:54 Citalopram Hydrobromide 20 Mg Tablet PO 20 mg DAILY GLENN Administration Clonazepam 1 mg 01/04/24 17:00 01/05/24 08:55 Clonazepam (*Crx) 0.5 Mg Tablet PO 1 mg BID GLENN Administration Gabapentin 300 mg 01/04/24 17:00 01/05/24 12:37 Gabapentin 300 Mg Capsule PO 300 mg TID GLENN Administration Sodium Chloride 1,000 mls @ 125 mls/hr 01/04/24 16:12 01/05/24 04:24 Normal Saline Iv IV CONT Infused .Q8H GLENN Infusion Losartan Potassium 25 mg 01/05/24 09:00 01/05/24 08:55 Losartan Potassium 25 Mg Tablet PO 25 mg DAILY GLENN Administration Magnesium Hydroxide 30 ml 01/04/24 05:11 Magnesium Hydroxide Susp 30 Ml Udc PO DAILY PRN Constipation Metoprolol Tartrate 25 mg 01/04/24 17:00 01/05/24 08:54 Metoprolol Tartrate 25 Mg Tablet PO 25 mg BID GLENN Administration Morphine Sulfate 2 mg 01/04/24 05:11 01/04/24 09:40 Morphine Sulfate (*Crx) 2 Mg/Ml Inj IV PUSH 2 mg Q4H PRN Administration Pain Rated 7-10 Naloxone HCl 0.1 mg 01/04/24 16:12 Naloxone Hcl 0.4 Mg/Ml Vial IV PUSH Q2M PRN Opiate Reversal Pantoprazole Sodium 40 mg 01/05/24 09:00 01/05/24 08:54 Pantoprazole 40 Mg Tablet PO 40 mg QAM GLENN Administration Polyethylene Glycol 17 gm 01/05/24 09:00 01/05/24 08:53 Polyethylene Glycol 3350 17 Gm Powd.Pack PO 17 gm QAM GLENN Administration Senna/Docusate Sodium 2 tab 01/04/24 17:00 01/05/24 08:54 Senna/Docusate Sodium Tablet PO 2 tab BID GLENN Administration Radiology Results: ITS Impressions Hip/Pelvis X-Ray 01/04/24 08:19 IMPRESSION: Fracture left femoral neck with angulation. The angulation is about 90 degrees.. Labs Labs: Laboratory Results - last 24 hr 01/04/24 01/04/24 01/04/24 14:57 16:43 19:49 WBC RBC Hgb Hct MCV MCH MCHC RDW Plt Count MPV Immature Gran % (Auto) Neut % (Auto) Lymph % (Auto) [place] % (Auto) Eos % (Auto) Baso % (Auto) Lymph # (Auto) [place] # (Auto) Eos # (Auto) Baso # (Auto) Abs Immat Gran (auto) Absolute Neuts (auto) Absolute Nucleated RBC Nucleated RBC % Platelet Estimate Large Platelets Hypochromasia Target Cells Schistocytes Sodium Potassium Chloride Carbon Dioxide Anion Gap BUN Creatinine Estim Creat Clear Calc Estimated GFR Glucose Calcium Total Bilirubin AST ALT Alkaline Phosphatase Troponin I 0.022 < 0.012 D < 0.012 Total Protein Albumin 01/05/24 06:23 WBC 4.7 RBC 2.53 L Hgb 8.5 L D Hct 27.5 L MCV 108.7 H MCH 33.6 MCHC 30.9 L RDW 12.9 Plt Count 219 MPV 9.5 Immature Gran % (Auto) 0.8 H Neut % (Auto) 79.9 H Lymph % (Auto) 6.8 L [place] % (Auto) 12.3 H Eos % (Auto) 0.0 Baso % (Auto) 0.2 Lymph # (Auto) 0.32 L [place] # (Auto) 0.6 Eos # (Auto) 0.0 Baso # (Auto) 0.0 Abs Immat Gran (auto) 0.04 H Absolute Neuts (auto) 3.8 Absolute Nucleated RBC 0.000 Nucleated RBC % 0.0 Platelet Estimate Adequate Large Platelets Present Hypochromasia 1+ Target Cells 1+ Schistocytes None seen Sodium 135 L Potassium 4.3 Chloride 103 Carbon Dioxide 24 Anion Gap 8 BUN 11 Creatinine 0.60 L Estim Creat Clear Calc 79 Estimated GFR > 60 Glucose 118 H Calcium 8.2 L Total Bilirubin 0.3 AST 27 ALT 13 Alkaline Phosphatase 70 Troponin I Total Protein 6.0 L Albumin 3.2 L Hospitalist MIPS Advance Care Plan I have confirmed that the patient's Advanced Care Plan is present, code status is documented, or surrogate decision maker is listed in patient medical record.: Yes Medication Reconciliation I have utilized all available resources to obtain, update and review the patients current medications (includes all prescriptions, OTC, herbals, cannabis, and nutritional supplements).: Yes
[2024-01-05] MEDS: AMITRIPTYLINE HCL 10 MG TABLET PO (20:29)
[2024-01-05] MEDS: MORPHINE SULFATE (*CRX) 2 MG/ML INJ IV PUSH (20:29)
[2024-01-05] MEDS: ATORVASTATIN 40 MG TABLET PO (20:29)
[2024-01-06] VITALS (11 sets, daily range): BP systolic 117–152; BP diastolic 78–87; PULSE 73–90; RESP 12–16; TEMP 36.2–36.4; O2SAT 95–98
[2024-01-06] MEDS: HYDROcodone/acetaminophen (*CRX) 10-325 MG TABLET 1 TAB PO ×3 (06:06→18:00)
[2024-01-06 07:07] LABS: Basophils Percent Auto 0.3 % (0.2-1.2); Eosinophils Absolute Auto 0.1 K/mm3 (0-0.3); Eosinophils Percent Auto 1.7 % (0-4.4); Hematocrit 26.3 % (37.0-47.0); Hemoglobin 8.1 g/dL (12.0-15.0); Immature Granulocyte Absolute 0.02 K/mm3 (0.00-0.031); Immature Granulocyte Percent A 0.6 % (0-0.5); Lymphocytes Absolute Auto 1.02 K/mm3 (0.9-3.2); Lymphocytes Percent Auto 28.3 % (18.3-44.2); Mean Corpuscular HGB Conc 30.8 g/dl (32-36); Mean Corpuscular Volume 110.5 fl (80-100); Mean Platelet Volume 9.6 fl (7.4-10.4); Monocytes Absolute Auto 0.6 K/mm3 (0.1-0.6); Monocytes Percent Auto 15.8 % (2.6-8.5); Neutrophils Absolute Auto 1.9 K/mm3 (1.3-6.7); Neutrophils Percent Auto 53.3 % (45.5-73.1); Platelet Count Result 208 k/mm3 (150-375); Red Blood Count 2.38 M/mm3 (4.2-5.4); Red Cell Distribution Width 13.3 % (11.5-14.5); White Blood Count 3.6 K/mm3 (4.5-10.0)
[2024-01-06 07:23] LABS: Alanine Aminotransferase 8 U/L (6-35); Albumin Level 2.9 g/dL (3.5-5.1); Alkaline Phosphatase 59 U/L (38-126); Anion Gap 3 mmol/L (4-12); Aspartate Amino Transferase 23 U/L (14-36); Bilirubin,Total 0.3 mg/dL (0.2-1.3); Blood Urea Nitrogen 10 mg/dL (7-17); Calcium 8.6 mg/dL (8.4-10.2); Carbon Dioxide 27 mmol/L (22-30); Chloride 104 mmol/L (98-107); Estimated CRCL calculation 79 ml/min; Estimated Glomerular Filt Rate > 60; Glucose 93 mg/dL (65-110); Potassium 4.1 mmol/L (3.4-5.0); Sodium 134 mmol/L (137-145)
[2024-01-06 07:44] LABS: Hypochromasia 1+; Macrocytosis 1+ (NORMAL); Platelet Estimate Adequate (Adequate); Schistocytes None Seen
--- NOTE | 2024-01-06 08:03 | P.PNOP_ITS ---
Subjective Subjective Date/Time Seen: 01/06/24 08:03 Interval history: Postop day 2 patient is alert. She is afebrile vital signs are stable. Hemoglobin this morning was 8.1. Patient is maintaining blood pressure well. She is not tachycardic. She has been up moving around with therapy and is having no symptoms from the anemia. She is having some mild discomfort but her chronic pain medication seems to be working well. Dressings are dry. Care coordination is working on rehab facility placement. Patient will remain partial weight-bearing for the 1st 6 weeks. I did order her a vitamin-D 25 hydroxy this morning. We will check another CBC tomorrow morning Objective Data Vital Signs Vital Signs: Vital Signs - 24 hr 01/05/24 08:29 01/05/24 08:54 01/05/24 09:00 Temperature Pulse Rate 95 Respiratory Rate Blood Pressure Pulse Oximetry Oxygen Delivery Room Air Room Air 01/05/24 08:52 01/05/24 09:57 01/05/24 12:00 Temperature 98.0 F Pulse Rate 88 90 Respiratory Rate 18 Blood Pressure 176/90 H Pulse Oximetry 99 Oxygen Delivery Room Air 01/05/24 13:57 01/05/24 16:00 01/05/24 17:12 Temperature 97.4 F L Pulse Rate 74 85 84 Respiratory Rate 18 Blood Pressure 139/88 Pulse Oximetry 97 Oxygen Delivery 01/05/24 17:57 01/05/24 20:13 01/05/24 20:30 Temperature 97.8 F 98 F Pulse Rate 85 75 77 Respiratory Rate 18 16 Blood Pressure 137/75 126/78 Pulse Oximetry 98 100 Oxygen Delivery 01/06/24 00:00 01/06/24 04:00 01/06/24 06:00 Temperature 97.5 F L Pulse Rate 80 73 78 Respiratory Rate 12 Blood Pressure 138/82 Pulse Oximetry 98 Oxygen Delivery Intake/Output Intake/Output: Intake & Output 01/03/24 01/04/24 01/05/24 01/06/24 23:59 23:59 23:59 23:59 Intake Total 1220 1770 350 Output Total 1500 550 Balance 1220 270 -200 Meds/Results Medications: Active Medications Generic Name Dose Route Start Last Admin Trade Name Freq PRN Reason Stop Dose Admin Hydrocodone Bitart/Acetaminophen 1 tab 01/04/24 16:12 01/06/24 06:06 Hydrocodone/Acetaminophen (*Crx) 10-325 Mg Tablet PO 1 tab Q6H PRN Administration Pain Al Hydrox/Mg Hydrox/Simethicone 30 ml 01/04/24 05:11 Mag Hydrox/Al Hydrox/Simeth 30 Ml Udc PO QID PRN Dyspepsia Amitriptyline HCl 10 mg 01/04/24 21:00 01/05/24 20:29 Amitriptyline Hcl 10 Mg Tablet PO 10 mg HS GLENN Administration Apixaban 2.5 mg 01/05/24 09:00 01/05/24 20:29 Apixaban 2.5 Mg Tablet PO 2.5 mg Q12HR GLENN Administration Atorvastatin Calcium 40 mg 01/04/24 21:00 01/05/24 20:29 Atorvastatin 40 Mg Tablet PO 40 mg HS GLENN Administration Citalopram Hydrobromide 20 mg 01/05/24 09:00 01/05/24 08:54 Citalopram Hydrobromide 20 Mg Tablet PO 20 mg DAILY GLENN Administration Clonazepam 1 mg 01/04/24 17:00 01/05/24 17:12 Clonazepam (*Crx) 0.5 Mg Tablet PO 1 mg BID GLENN Administration Gabapentin 300 mg 01/04/24 17:00 01/05/24 17:12 Gabapentin 300 Mg Capsule PO 300 mg TID GLENN Administration Losartan Potassium 25 mg 01/05/24 09:00 01/05/24 08:55 Losartan Potassium 25 Mg Tablet PO 25 mg DAILY GLENN Administration Magnesium Hydroxide 30 ml 01/04/24 05:11 Magnesium Hydroxide Susp 30 Ml Udc PO DAILY PRN Constipation Metoprolol Tartrate 25 mg 01/04/24 17:00 01/05/24 17:12 Metoprolol Tartrate 25 Mg Tablet PO 25 mg BID GLENN Administration Morphine Sulfate 2 mg 01/04/24 05:11 01/05/24 20:29 Morphine Sulfate (*Crx) 2 Mg/Ml Inj IV PUSH 2 mg Q4H PRN Administration Pain Rated 7-10 Naloxone HCl 0.1 mg 01/04/24 16:12 Naloxone Hcl 0.4 Mg/Ml Vial IV PUSH Q2M PRN Opiate Reversal Pantoprazole Sodium 40 mg 01/05/24 09:00 01/05/24 08:54 Pantoprazole 40 Mg Tablet PO 40 mg QAM GLENN Administration Polyethylene Glycol 17 gm 01/05/24 09:00 01/05/24 08:53 Polyethylene Glycol 3350 17 Gm Powd.Pack PO 17 gm QAM GLENN Administration Senna/Docusate Sodium 2 tab 01/04/24 17:00 01/05/24 17:11 Senna/Docusate Sodium Tablet PO Not Given BID [facility] Radiology Results: ITS Impressions Hip/Pelvis X-Ray 01/04/24 08:19 IMPRESSION: Fracture left femoral neck with angulation. The angulation is about 90 degrees.. Labs Labs: Laboratory Results - last 24 hr 01/05/24 01/06/24 06:23 06:23 WBC 4.7 3.6 L RBC 2.53 L 2.38 L Hgb 8.5 L D 8.1 L Hct 27.5 L 26.3 L MCV 108.7 H 110.5 H MCH 33.6 34.0 MCHC 30.9 L 30.8 L RDW 12.9 13.3 Plt Count 219 208 MPV 9.5 9.6 Immature Gran % (Auto) 0.8 H 0.6 H Neut % (Auto) 79.9 H 53.3 Lymph % (Auto) 6.8 L 28.3 [place] % (Auto) 12.3 H 15.8 H Eos % (Auto) 0.0 1.7 Baso % (Auto) 0.2 0.3 Lymph # (Auto) 0.32 L 1.02 [place] # (Auto) 0.6 0.6 Eos # (Auto) 0.0 0.1 Baso # (Auto) 0.0 0.0 Abs Immat Gran (auto) 0.04 H 0.02 Absolute Neuts (auto) 3.8 1.9 Absolute Nucleated RBC 0.000 0.000 Nucleated RBC % 0.0 0.0 Platelet Estimate Adequate Adequate Large Platelets Present Hypochromasia 1+ 1+ Macrocytosis 1+ Target Cells 1+ Schistocytes None seen None seen Sodium 134 L Potassium 4.1 Chloride 104 Carbon Dioxide 27 Anion Gap 3 L BUN 10 Creatinine 0.60 L Estim Creat Clear Calc 79 Estimated GFR > 60 Glucose 93 Calcium 8.6 Total Bilirubin 0.3 AST 23 ALT 8 Alkaline Phosphatase 59 Total Protein 6.0 L Albumin 2.9 L
[2024-01-06] MEDS: PANTOPRAZOLE 40 MG TABLET PO (09:42)
[2024-01-06] MEDS: GABAPENTIN 300 MG CAPSULE PO ×3 (09:42→17:59)
[2024-01-06] MEDS: clonazePAM (*CRX) 0.5 MG TABLET 1 MG PO ×2 (09:42→17:59)
[2024-01-06] MEDS: SENNA/DOCUSATE SODIUM TABLET 2 TAB PO ×2 (09:42→17:59)
[2024-01-06] MEDS: CITALOPRAM HYDROBROMIDE 20 MG TABLET PO (09:42)
[2024-01-06] MEDS: METOPROLOL TARTRATE 25 MG TABLET PO ×2 (09:42→17:59)
[2024-01-06] MEDS: APIXABAN 2.5 MG TABLET PO ×2 (09:43→21:33)
[2024-01-06] MEDS: LOSARTAN POTASSIUM 25 MG TABLET PO (09:43)
[2024-01-06] MEDS: MORPHINE SULFATE (*CRX) 2 MG/ML INJ IV PUSH ×2 (09:46→13:19)
[2024-01-06 11:09] LABS: Vitamin D 25 Hydroxy 65.3 ng/mL
--- NOTE | 2024-01-06 16:29 | P.PNIM_ITS ---
Progress Note: A&P Assessment and Plan (1) Intertrochanteric fracture of left femur: Qualifiers: Encounter type: initial encounter Fracture alignment: displaced Fracture type: closed Qualified Code(s): S72.142A - Displaced intertrochanteric fracture of left femur, initial encounter for closed fracture Code(s): S72.142A - Displaced intertrochanteric fracture of left femur, initial encounter for closed fracture Status: Acute Assessment and Plan: Patient is a 58-year-old female who fell yesterday and sustained a displaced left intertrochanteric hip fracture. The fracture involves the medial aspect of the greater trochanter and the superior aspect of the lesser trochanter so it is categorized as an intertrochanteric hip fracture. There is mild comminution of the lesser trochanter. Patient has a displaced intertrochanteric left hip fracture. Open reduction internal fixation with a trochanteric nail device for this fracture pattern. (2) Osteoporosis: Code(s): M81.0 - Age-related osteoporosis without current pathological fracture Status: Acute Assessment and Plan: Fragility fracture from a fall DEXA as OP Consider Bisphosphonates upto 5 years if oral or 3 years if IV OR Consider Denosumab injections x 6 months (3) UTI (urinary tract infection): Code(s): N39.0 - Urinary tract infection, site not specified Status: Acute Assessment and Plan: UA reviewed UC obtained. No sx and not undergoing any urological procedure , so doesn't warrants any tx Subjective Date/time seen: 01/06/24 16:29 Interval history: Pending transfer to rehab. Post op day 2. No acute events were reported Objective Data Vital Signs Vital Signs: Vital Signs - 24 hr 01/05/24 17:12 01/05/24 17:57 01/05/24 20:13 Temperature 97.8 F 98 F Pulse Rate 84 85 75 Respiratory Rate 18 16 Blood Pressure 137/75 126/78 Pulse Oximetry 98 100 Oxygen Delivery 01/05/24 20:30 01/06/24 00:00 01/06/24 04:00 Temperature Pulse Rate 77 80 73 Respiratory Rate Blood Pressure Pulse Oximetry Oxygen Delivery 01/06/24 06:00 01/06/24 09:42 01/06/24 08:00 Temperature 97.5 F L Pulse Rate 78 87 Respiratory Rate 12 Blood Pressure 138/82 Pulse Oximetry 98 Oxygen Delivery Room Air 01/06/24 08:00 01/06/24 13:42 Temperature 97.2 F L Pulse Rate 85 81 Respiratory Rate 16 Blood Pressure 152/87 H Pulse Oximetry 98 Oxygen Delivery Intake/Output Intake/Output: Intake & Output 01/03/24 01/04/24 01/05/24 01/06/24 23:59 23:59 23:59 23:59 Intake Total 1220 1770 830 Output Total 1500 1200 Balance 1220 270 -370 Meds/Results Medications: Active Medications Generic Name Dose Route Start Last Admin Trade Name Freq PRN Reason Stop Dose Admin Hydrocodone Bitart/Acetaminophen 1 tab 01/04/24 16:12 01/06/24 12:02 Hydrocodone/Acetaminophen (*Crx) 10-325 Mg Tablet PO 1 tab Q6H PRN Administration Pain Al Hydrox/Mg Hydrox/Simethicone 30 ml 01/04/24 05:11 Mag Hydrox/Al Hydrox/Simeth 30 Ml Udc PO QID PRN Dyspepsia Amitriptyline HCl 10 mg 01/04/24 21:00 01/05/24 20:29 Amitriptyline Hcl 10 Mg Tablet PO 10 mg HS GLENN Administration Apixaban 2.5 mg 01/05/24 09:00 01/06/24 09:43 Apixaban 2.5 Mg Tablet PO 2.5 mg Q12HR GLENN Administration Atorvastatin Calcium 40 mg 01/04/24 21:00 01/05/24 20:29 Atorvastatin 40 Mg Tablet PO 40 mg HS GLENN Administration Citalopram Hydrobromide 20 mg 01/05/24 09:00 01/06/24 09:42 Citalopram Hydrobromide 20 Mg Tablet PO 20 mg DAILY GLENN Administration Clonazepam 1 mg 01/04/24 17:00 01/06/24 09:42 Clonazepam (*Crx) 0.5 Mg Tablet PO 1 mg BID GLENN Administration Gabapentin 300 mg 01/04/24 17:00 01/06/24 12:02 Gabapentin 300 Mg Capsule PO 300 mg TID GLENN Administration Losartan Potassium 25 mg 01/05/24 09:00 01/06/24 09:43 Losartan Potassium 25 Mg Tablet PO 25 mg DAILY GLENN Administration Magnesium Hydroxide 30 ml 01/04/24 05:11 Magnesium Hydroxide Susp 30 Ml Udc PO DAILY PRN Constipation Metoprolol Tartrate 25 mg 01/04/24 17:00 01/06/24 09:42 Metoprolol Tartrate 25 Mg Tablet PO 25 mg BID GLENN Administration Morphine Sulfate 2 mg 01/04/24 05:11 01/06/24 13:19 Morphine Sulfate (*Crx) 2 Mg/Ml Inj IV PUSH 2 mg Q4H PRN Administration Pain Rated 7-10 Naloxone HCl 0.1 mg 01/04/24 16:12 Naloxone Hcl 0.4 Mg/Ml Vial IV PUSH Q2M PRN Opiate Reversal Pantoprazole Sodium 40 mg 01/05/24 09:00 01/06/24 09:42 Pantoprazole 40 Mg Tablet PO 40 mg QAM GLENN Administration Polyethylene Glycol 17 gm 01/05/24 09:00 01/06/24 09:44 Polyethylene Glycol 3350 17 Gm Powd.Pack PO Not Given QAM GLENN Senna/Docusate Sodium 2 tab 01/04/24 17:00 01/06/24 09:42 Senna/Docusate Sodium Tablet PO 2 tab BID GLENN Administration Radiology Results: ITS Impressions Hip/Pelvis X-Ray 01/04/24 08:19 IMPRESSION: Fracture left femoral neck with angulation. The angulation is about 90 degrees.. Labs Labs: Laboratory Results - last 24 hr 01/06/24 06:23 WBC 3.6 L RBC 2.38 L Hgb 8.1 L Hct 26.3 L MCV 110.5 H MCH 34.0 MCHC 30.8 L RDW 13.3 Plt Count 208 MPV 9.6 Immature Gran % (Auto) 0.6 H Neut % (Auto) 53.3 Lymph % (Auto) 28.3 [place] % (Auto) 15.8 H Eos % (Auto) 1.7 Baso % (Auto) 0.3 Lymph # (Auto) 1.02 [place] # (Auto) 0.6 Eos # (Auto) 0.1 Baso # (Auto) 0.0 Abs Immat Gran (auto) 0.02 Absolute Neuts (auto) 1.9 Absolute Nucleated RBC 0.000 Nucleated RBC % 0.0 Platelet Estimate Adequate Hypochromasia 1+ Macrocytosis 1+ Schistocytes None seen Sodium 134 L Potassium 4.1 Chloride 104 Carbon Dioxide 27 Anion Gap 3 L BUN 10 Creatinine 0.60 L Estim Creat Clear Calc 79 Estimated GFR > 60 Glucose 93 Calcium 8.6 Total Bilirubin 0.3 AST 23 ALT 8 Alkaline Phosphatase 59 Total Protein 6.0 L Albumin 2.9 L Vitamin D 25-Hydroxy 65.3 Hospitalist MIPS Advance Care Plan I have confirmed that the patient's Advanced Care Plan is present, code status is documented, or surrogate decision maker is listed in patient medical record.: Yes Medication Reconciliation I have utilized all available resources to obtain, update and review the patients current medications (includes all prescriptions, OTC, herbals, cannabis, and nutritional supplements).: Yes
[2024-01-06] MEDS: AMITRIPTYLINE HCL 10 MG TABLET PO (21:33)
[2024-01-06] MEDS: ATORVASTATIN 40 MG TABLET PO (21:33)
[2024-01-07] VITALS (8 sets, daily range): BP systolic 140–153; BP diastolic 81–90; PULSE 74–95; RESP 14–18; TEMP 36.2–36.3; O2SAT 92–99
[2024-01-07] MEDS: HYDROcodone/acetaminophen (*CRX) 10-325 MG TABLET 1 TAB PO ×3 (00:11→11:49)
[2024-01-07 07:08] LABS: Basophils Percent Auto 0.9 % (0.2-1.2); Eosinophils Absolute Auto 0.1 K/mm3 (0-0.3); Eosinophils Percent Auto 2.3 % (0-4.4); Hemoglobin 8.4 g/dL (12.0-15.0); Immature Granulocyte Absolute 0.02 K/mm3 (0.00-0.031); Immature Granulocyte Percent A 0.5 % (0-0.5); Lymphocytes Absolute Auto 1.12 K/mm3 (0.9-3.2); Lymphocytes Percent Auto 25.2 % (18.3-44.2); Mean Corpuscular Hemoglobin 34.1 pg (26-34); Mean Corpuscular Volume 113.8 fl (80-100); Mean Platelet Volume 9.8 fl (7.4-10.4); Monocytes Absolute Auto 0.8 K/mm3 (0.1-0.6); Monocytes Percent Auto 17.1 % (2.6-8.5); Neutrophils Absolute Auto 2.4 K/mm3 (1.3-6.7); Platelet Count Result 219 k/mm3 (150-375); Red Blood Count 2.46 M/mm3 (4.2-5.4); White Blood Count 4.4 K/mm3 (4.5-10.0)
[2024-01-07 07:24] LABS: Alanine Aminotransferase 8 U/L (6-35); Alkaline Phosphatase 42 U/L (38-126); Anion Gap 2 mmol/L (4-12); Aspartate Amino Transferase 34 U/L (14-36); Bilirubin,Total 0.9 mg/dL (0.2-1.3); Blood Urea Nitrogen 11 mg/dL (7-17); Calcium 8.7 mg/dL (8.4-10.2); Carbon Dioxide 26 mmol/L (22-30); Chloride 103 mmol/L (98-107); Estimated CRCL calculation 93 ml/min; Estimated Glomerular Filt Rate > 60; Glucose 92 mg/dL (65-110); Potassium 4.9 mmol/L (3.4-5.0); Sodium 131 mmol/L (137-145)
[2024-01-07 08:35] LABS: Crenated RBC 1+; Macrocytosis 1+ (NORMAL); Platelet Estimate Adequate (Adequate); Schistocytes Rare
[2024-01-07] MEDS: LOSARTAN POTASSIUM 25 MG TABLET PO (08:36)
[2024-01-07] MEDS: CITALOPRAM HYDROBROMIDE 20 MG TABLET PO (08:36)
[2024-01-07] MEDS: GABAPENTIN 300 MG CAPSULE PO ×3 (08:36→16:26)
[2024-01-07] MEDS: clonazePAM (*CRX) 0.5 MG TABLET 1 MG PO ×2 (08:36→16:26)
[2024-01-07] MEDS: APIXABAN 2.5 MG TABLET PO (08:37)
[2024-01-07] MEDS: PANTOPRAZOLE 40 MG TABLET PO (08:37)
[2024-01-07] MEDS: METOPROLOL TARTRATE 25 MG TABLET PO ×2 (08:39→16:26)
--- NOTE | 2024-01-07 11:03 | P.PNIM_ITS ---
Progress Note: A&P Assessment and Plan (1) Intertrochanteric fracture of left femur: Qualifiers: Encounter type: initial encounter Fracture alignment: displaced Fracture type: closed Qualified Code(s): S72.142A - Displaced intertrochanteric fracture of left femur, initial encounter for closed fracture Code(s): S72.142A - Displaced intertrochanteric fracture of left femur, initial encounter for closed fracture Status: Acute Assessment and Plan: Patient is a 58-year-old female who fell yesterday and sustained a displaced left intertrochanteric hip fracture. The fracture involves the medial aspect of the greater trochanter and the superior aspect of the lesser trochanter so it is categorized as an intertrochanteric hip fracture. There is mild comminution of the lesser trochanter. Patient has a displaced intertrochanteric left hip fracture. Open reduction internal fixation with a trochanteric nail device for this fracture pattern. (2) Osteoporosis: Code(s): M81.0 - Age-related osteoporosis without current pathological fracture Status: Acute Assessment and Plan: Fragility fracture from a fall DEXA as OP Consider Bisphosphonates upto 5 years if oral or 3 years if IV OR Consider Denosumab injections x 6 months (3) UTI (urinary tract infection): Code(s): N39.0 - Urinary tract infection, site not specified Status: Acute Assessment and Plan: UA reviewed UC obtained. No sx and not undergoing any urological procedure , so doesn't warrants any tx Subjective Date/time seen: 01/07/24 11:03 Interval history: Resting comfortably at bed. Awaiting transfer to rehab Objective Data Vital Signs Vital Signs: Vital Signs - 24 hr 01/06/24 13:42 01/06/24 12:00 01/06/24 16:00 Temperature 97.2 F L Pulse Rate 81 86 90 Respiratory Rate 16 Blood Pressure 152/87 H Pulse Oximetry 98 01/06/24 17:59 01/06/24 21:17 01/06/24 20:45 Temperature 97.3 F L Pulse Rate 90 82 82 Respiratory Rate 12 Blood Pressure 117/78 Pulse Oximetry 95 01/07/24 00:00 01/07/24 04:00 01/07/24 05:36 Temperature 97.2 F L Pulse Rate 76 77 76 Respiratory Rate 14 Blood Pressure 140/81 Pulse Oximetry 92 01/07/24 08:39 01/07/24 08:00 Temperature Pulse Rate 76 74 Respiratory Rate Blood Pressure Pulse Oximetry Intake/Output Intake/Output: Intake & Output 01/04/24 01/05/24 01/06/24 01/07/24 23:59 23:59 23:59 23:59 Intake Total 1220 1770 1070 150 Output Total 1500 1200 700 Balance 1220 270 -130 -550 Meds/Results Medications: Active Medications Generic Name Dose Route Start Last Admin Trade Name Freq PRN Reason Stop Dose Admin Hydrocodone Bitart/Acetaminophen 1 tab 01/04/24 16:12 01/07/24 06:04 Hydrocodone/Acetaminophen (*Crx) 10-325 Mg Tablet PO 1 tab Q6H PRN Administration Pain Al Hydrox/Mg Hydrox/Simethicone 30 ml 01/04/24 05:11 Mag Hydrox/Al Hydrox/Simeth 30 Ml Udc PO QID PRN Dyspepsia Amitriptyline HCl 10 mg 01/04/24 21:00 01/06/24 21:33 Amitriptyline Hcl 10 Mg Tablet PO 10 mg HS GLENN Administration Apixaban 2.5 mg 01/05/24 09:00 01/07/24 08:37 Apixaban 2.5 Mg Tablet PO 2.5 mg Q12HR GLENN Administration Atorvastatin Calcium 40 mg 01/04/24 21:00 01/06/24 21:33 Atorvastatin 40 Mg Tablet PO 40 mg HS GLENN Administration Citalopram Hydrobromide 20 mg 01/05/24 09:00 01/07/24 08:36 Citalopram Hydrobromide 20 Mg Tablet PO 20 mg DAILY GLENN Administration Clonazepam 1 mg 01/04/24 17:00 01/07/24 08:36 Clonazepam (*Crx) 0.5 Mg Tablet PO 1 mg BID GLENN Administration Gabapentin 300 mg 01/04/24 17:00 01/07/24 08:36 Gabapentin 300 Mg Capsule PO 300 mg TID GLENN Administration Losartan Potassium 25 mg 01/05/24 09:00 01/07/24 08:36 Losartan Potassium 25 Mg Tablet PO 25 mg DAILY GLENN Administration Magnesium Hydroxide 30 ml 01/04/24 05:11 Magnesium Hydroxide Susp 30 Ml Udc PO DAILY PRN Constipation Metoprolol Tartrate 25 mg 01/04/24 17:00 01/07/24 08:39 Metoprolol Tartrate 25 Mg Tablet PO 25 mg BID [facility] Administration Morphine Sulfate 2 mg 01/04/24 05:11 01/06/24 13:19 Morphine Sulfate (*Crx) 2 Mg/Ml Inj IV PUSH 2 mg Q4H PRN Administration Pain Rated 7-10 Naloxone HCl 0.1 mg 01/04/24 16:12 Naloxone Hcl 0.4 Mg/Ml Vial IV PUSH Q2M PRN Opiate Reversal Pantoprazole Sodium 40 mg 01/05/24 09:00 01/07/24 08:37 Pantoprazole 40 Mg Tablet PO 40 mg QAM GLENN Administration Polyethylene Glycol 17 gm 01/05/24 09:00 01/07/24 07:16 Polyethylene Glycol 3350 17 Gm Powd.Pack PO Not Given QAM GLNEN Senna/Docusate Sodium 2 tab 01/04/24 17:00 01/07/24 07:15 Senna/Docusate Sodium Tablet PO Not Given BID [facility] Radiology Results: ITS Impressions Hip/Pelvis X-Ray 01/04/24 08:19 IMPRESSION: Fracture left femoral neck with angulation. The angulation is about 90 degrees.. Labs Labs: Laboratory Results - last 24 hr 01/06/24 01/07/24 06:23 06:57 WBC 4.4 L RBC 2.46 L Hgb 8.4 L Hct 28.0 L MCV 113.8 H MCH 34.1 H MCHC 30.0 L RDW 13.0 Plt Count 219 MPV 9.8 Immature Gran % (Auto) 0.5 Neut % (Auto) 54.0 Lymph % (Auto) 25.2 [place] % (Auto) 17.1 H Eos % (Auto) 2.3 Baso % (Auto) 0.9 Lymph # (Auto) 1.12 [place] # (Auto) 0.8 H Eos # (Auto) 0.1 Baso # (Auto) 0.0 Abs Immat Gran (auto) 0.02 Absolute Neuts (auto) 2.4 Absolute Nucleated RBC 0.000 Nucleated RBC % 0.0 Platelet Estimate Adequate Macrocytosis 1+ Crenated Cell 1+ Schistocytes Rare Sodium 131 L Potassium 4.9 Chloride 103 Carbon Dioxide 26 Anion Gap 2 L BUN 11 Creatinine 0.50 L Estim Creat Clear Calc 93 Estimated GFR > 60 Glucose 92 Calcium 8.7 Total Bilirubin 0.9 AST 34 ALT 8 Alkaline Phosphatase 42 Total Protein 6.0 L Albumin 3.0 L Vitamin D 25-Hydroxy 65.3 Hospitalist MIPS Advance Care Plan I have confirmed that the patient's Advanced Care Plan is present, code status is documented, or surrogate decision maker is listed in patient medical record.: Yes Medication Reconciliation I have utilized all available resources to obtain, update and review the patients current medications (includes all prescriptions, OTC, herbals, cannabis, and nutritional supplements).: Yes
--- NOTE | 2024-01-07 13:56 | P.DS_ITS ---
DS: Admitting Diagnosis Discharge Date 01/07/2024 Admitting Diagnosis Displaced intertrochanteric fracture of left femur DS: Discharge Diagnosis Discharge Diagnosis (1) Intertrochanteric fracture of left femur: Qualifiers: Encounter type: initial encounter Fracture alignment: displaced Fracture type: closed Qualified Code(s): S72.142A - Displaced intertrochanteric fracture of left femur, initial encounter for closed fracture Code(s): S72.142A - Displaced intertrochanteric fracture of left femur, initial encounter for closed fracture Status: Acute Assessment and Plan: Patient is a 58-year-old female who fell yesterday and sustained a displaced left intertrochanteric hip fracture. The fracture involves the medial aspect of the greater trochanter and the superior aspect of the lesser trochanter so it is categorized as an intertrochanteric hip fracture. There is mild comminution of the lesser trochanter. Patient has a displaced intertrochanteric left hip fracture. Open reduction internal fixation with a trochanteric nail device for this fracture pattern. (2) Osteoporosis: Code(s): M81.0 - Age-related osteoporosis without current pathological fracture Status: Acute Assessment and Plan: Fragility fracture from a fall DEXA as OP Consider Bisphosphonates upto 5 years if oral or 3 years if IV OR Consider Denosumab injections x 6 months (3) UTI (urinary tract infection): Code(s): N39.0 - Urinary tract infection, site not specified Status: Acute Assessment and Plan: UA reviewed UC obtained. No sx and not undergoing any urological procedure , so doesn't warrants any tx DS: Summary Hospital Course Hospital Course: Patient is a 58-year-old female who fell yesterday and sustained a displaced left intertrochanteric hip fracture. The fracture involves the medial aspect of the greater trochanter and the superior aspect of the lesser trochanter so it is categorized as an intertrochanteric hip fracture. There is mild comminution of the lesser trochanter.Her laboratory studies and urinalysis suggests that she may have a urinary tract infection. Cultures are pending. She had 4+ urine bacteria and 6-10 white blood cells per high-powered field.She has a history of lumbar fusion and has hardware in the lumbar spine posterior instrumentation with pedicle screws.Patient reports of performing remote Dexa scan but doesn't remember the details. Patient denies any urinary sx. Patient underwent Open reduction internal fixation left intertrochanteric hip fracture with Arthrex short trochanteric nail device with distal interlocking on 01/04/2024. Patient is discharged to [facility]. Status at Discharge Cognitive/behavioral status at discharge: Stable Time Spent with Patient Time attestation: Total time spent providing and/or coordinating discharge services: 45 minutes DS: Data Data Completed and Pending Labs on day of discharge: Labs from last 24 hours 01/07/24 06:57 WBC 4.4 L RBC 2.46 L Hgb 8.4 L Hct 28.0 L MCV 113.8 H MCH 34.1 H MCHC 30.0 L RDW 13.0 Plt Count 219 MPV 9.8 Immature Gran % (Auto) 0.5 Neut % (Auto) 54.0 Lymph % (Auto) 25.2 [place] % (Auto) 17.1 H Eos % (Auto) 2.3 Baso % (Auto) 0.9 Lymph # (Auto) 1.12 [place] # (Auto) 0.8 H Eos # (Auto) 0.1 Baso # (Auto) 0.0 Abs Immat Gran (auto) 0.02 Absolute Neuts (auto) 2.4 Absolute Nucleated RBC 0.000 Nucleated RBC % 0.0 Platelet Estimate Adequate Macrocytosis 1+ Crenated Cell 1+ Schistocytes Rare Sodium 131 L Potassium 4.9 Chloride 103 Carbon Dioxide 26 Anion Gap 2 L BUN 11 Creatinine 0.50 L Estim Creat Clear Calc 93 Estimated GFR > 60 Glucose 92 Calcium 8.7 Total Bilirubin 0.9 AST 34 ALT 8 Alkaline Phosphatase 42 Total Protein 6.0 L Albumin 3.0 L Imaging Radiologist's impression: ITS Impressions Hip/Pelvis X-Ray 01/04/24 08:19 IMPRESSION: Fracture left femoral neck with angulation. The angulation is about 90 degrees.. Discharge Plan Discharge Attending physician on discharge: Matheus Guajardo Consulting providers: Get Brady Discharging Clinician: Matheus Guajardo Patient Disposition: [facility] [place] Activity: other - see discharge instructions Diet: regular Wound Care Instructions: follow printed instructions Discharge Instructions: Patient is to be light partial weight-bearing for 6 weeks with a walker. Change dressings daily. Lola to be removed on 01/18/24. Patient will need to follow-up with Dr. Jose Antonio in 3 weeks. Patient can continue to be on her chronic narcotics for pain control DEXA scan as Outpatient Patient Instructions: Antibiotic Form, Apixaban (By mouth), Pain Management (DC) Stand Alone Forms: General Discharge Information Follow-up/Referrals: Get Brady MD [Physician] - 3 Weeks Discharge Medications: New Eliquis 2.5 mg Tablet 2.5 mg PO Q12HR Qty: 82 0RF hydrocodone-acetaminophen 10-325 mg tablet 1 tablet PO Q6H PRN (Reason: pain) Qty: 10 0RF Continued atorvastatin 40 mg tablet 40 mg PO HS clonazepam 1 mg tablet 1 mg PO BID citalopram 20 mg tablet 20 mg PO DAILY amitriptyline 10 mg tablet 10 mg PO HS losartan 25 mg tablet 25 mg PO DAILY gabapentin 300 mg capsule 300 mg PO TID omeprazole 20 mg capsule,delayed release(DR/EC) 20 mg PO DAILY metoprolol tartrate 25 mg tablet 25 mg PO BID Discontinued hydrocodone-acetaminophen 10-325 mg tablet 1 tablet PO Q6H PRN (Reason: Pain) Date of admission: 01/04/24 05:11 Primary Care Provider: UNKNOWN,DOCTOR Admitting Provider: Vega Llanos V. Attending physician on admission: Vega Llanos V. Condition: Stable
--- NOTE | 2024-01-07 14:45 | P.PNOP_ITS ---
Progress Note: A&P Assessment and Plan (1) Intertrochanteric fracture of left femur: Qualifiers: Encounter type: initial encounter Fracture type: closed Fracture alignment: displaced Qualified Code(s): S72.142A - Displaced intertrochanteric fracture of left femur, initial encounter for closed fracture Code(s): S72.142A - Displaced intertrochanteric fracture of left femur, initial encounter for closed fracture Status: Acute Assessment and Plan: Postop day 3. After internal fixation intertrochanteric hip fracture with trochanteric nail device. Hemoglobin today is up to 8.4. Yesterday was 8 point so hemoglobin has stabilized. Laboratory studies are unchanged. Sodium a little low at 131. Eliquis for DVT prophylaxis. Plan 6 weeks. She is afebrile with stable vital signs. I have recommended to her that she have her technician assistant hypertension to further for additional management by her primary care physician. Her incisions are dry. There is no swelling in the leg today. She is comfortable at rest. She notes that during transfers she is having a lot of difficulty. It is hard for her to move her leg this is probably come lb I the fact that her entire spine is fused which will limit her pelvic mobility. We are awaiting rehab facility placement. Subjective Subjective Date/Time Seen: 01/07/24 14:45 Objective Data Vital Signs Vital Signs: Vital Signs - 24 hr 01/06/24 16:00 01/06/24 17:59 01/06/24 21:17 Temperature 36.3 C L Pulse Rate 90 90 82 Respiratory Rate 12 Blood Pressure 117/78 Pulse Oximetry 95 01/06/24 20:45 01/07/24 00:00 01/07/24 04:00 Temperature Pulse Rate 82 76 77 Respiratory Rate Blood Pressure Pulse Oximetry 01/07/24 05:36 01/07/24 08:39 01/07/24 08:00 Temperature 36.2 C L Pulse Rate 76 76 74 Respiratory Rate 14 Blood Pressure 140/81 Pulse Oximetry 92 01/07/24 12:00 01/07/24 14:00 Temperature 36.3 C L Pulse Rate 74 75 Respiratory Rate 18 Blood Pressure 153/90 H Pulse Oximetry 99 Intake/Output Intake/Output: Intake & Output 01/04/24 01/05/24 01/06/24 01/07/24 23:59 23:59 23:59 23:59 Intake Total 1220 1770 1070 508 Output Total 1500 1200 700 Balance 1220 187 -041 -648 Meds/Results Medications: Active Medications Generic Name Dose Route Start Last Admin Trade Name Freq PRN Reason Stop Dose Admin Hydrocodone Bitart/Acetaminophen 1 tab 01/04/24 16:12 01/07/24 11:49 Hydrocodone/Acetaminophen (*Crx) 10-325 Mg Tablet PO 1 tab Q6H PRN Administration Pain Al Hydrox/Mg Hydrox/Simethicone 30 ml 01/04/24 05:11 Mag Hydrox/Al Hydrox/Simeth 30 Ml Udc PO QID PRN Dyspepsia Amitriptyline HCl 10 mg 01/04/24 21:00 01/06/24 21:33 Amitriptyline Hcl 10 Mg Tablet PO 10 mg HS GLENN Administration Apixaban 2.5 mg 01/05/24 09:00 01/07/24 08:37 Apixaban 2.5 Mg Tablet PO 2.5 mg Q12HR GLENN Administration Atorvastatin Calcium 40 mg 01/04/24 21:00 01/06/24 21:33 Atorvastatin 40 Mg Tablet PO 40 mg HS GLENN Administration Citalopram Hydrobromide 20 mg 01/05/24 09:00 01/07/24 08:36 Citalopram Hydrobromide 20 Mg Tablet PO 20 mg DAILY GLENN Administration Clonazepam 1 mg 01/04/24 17:00 01/07/24 08:36 Clonazepam (*Crx) 0.5 Mg Tablet PO 1 mg BID GLENN Administration Gabapentin 300 mg 01/04/24 17:00 01/07/24 12:33 Gabapentin 300 Mg Capsule PO 300 mg TID GLENN Administration Losartan Potassium 25 mg 01/05/24 09:00 01/07/24 08:36 Losartan Potassium 25 Mg Tablet PO 25 mg DAILY GLENN Administration Magnesium Hydroxide 30 ml 01/04/24 05:11 Magnesium Hydroxide Susp 30 Ml Udc PO DAILY PRN Constipation Metoprolol Tartrate 25 mg 01/04/24 17:00 01/07/24 08:39 Metoprolol Tartrate 25 Mg Tablet PO 25 mg BID GLENN Administration Morphine Sulfate 2 mg 01/04/24 05:11 01/06/24 13:19 Morphine Sulfate (*Crx) 2 Mg/Ml Inj IV PUSH 2 mg Q4H PRN Administration Pain Rated 7-10 Naloxone HCl 0.1 mg 01/04/24 16:12 Naloxone Hcl 0.4 Mg/Ml Vial IV PUSH Q2M PRN Opiate Reversal Pantoprazole Sodium 40 mg 01/05/24 09:00 01/07/24 08:37 Pantoprazole 40 Mg Tablet PO 40 mg QAM GLENN Administration Polyethylene Glycol 17 gm 01/05/24 09:00 01/07/24 07:16 Polyethylene Glycol 3350 17 Gm Powd.Pack PO Not Given QAM GLENN Senna/Docusate Sodium 2 tab 01/04/24 17:00 01/07/24 07:15 Senna/Docusate Sodium Tablet PO Not Given BID GLENN Radiology Results: ITS Impressions Hip/Pelvis X-Ray 01/04/24 08:19 IMPRESSION: Fracture left femoral neck with angulation. The angulation is about 90 degrees.. Labs Labs: Laboratory Results - last 24 hr 01/07/24 06:57 WBC 4.4 L RBC 2.46 L Hgb 8.4 L Hct 28.0 L MCV 113.8 H MCH 34.1 H MCHC 30.0 L RDW 13.0 Plt Count 219 MPV 9.8 Immature Gran % (Auto) 0.5 Neut % (Auto) 54.0 Lymph % (Auto) 25.2 [place] % (Auto) 17.1 H Eos % (Auto) 2.3 Baso % (Auto) 0.9 Lymph # (Auto) 1.12 [place] # (Auto) 0.8 H Eos # (Auto) 0.1 Baso # (Auto) 0.0 Abs Immat Gran (auto) 0.02 Absolute Neuts (auto) 2.4 Absolute Nucleated RBC 0.000 Nucleated RBC % 0.0 Platelet Estimate Adequate Macrocytosis 1+ Crenated Cell 1+ Schistocytes Rare Sodium 131 L Potassium 4.9 Chloride 103 Carbon Dioxide 26 Anion Gap 2 L BUN 11 Creatinine 0.50 L Estim Creat Clear Calc 93 Estimated GFR > 60 Glucose 92 Calcium 8.7 Total Bilirubin 0.9 AST 34 ALT 8 Alkaline Phosphatase 42 Total Protein 6.0 L Albumin 3.0 L
== END 2024-01-07 16:50 | DRG 481 ==
PROVIDERS: Orthopaedic Surgery; Physician Assistant Surgical; Admitting Provider Internal Medicine; Visit Provider General Practice
PROC: 0QS734Z Reposition Left Upper Femur with Internal Fixation Device, Percutaneous Approach (ICD-10-PCS; CPT 27245; principal; 2024-01-04 12:30)
DX: S72.142A Displaced intertrochanteric fracture of left femur, initial encounter for closed fracture (principal); N39.0 Urinary tract infection, site not specified; M81.0 Age-related osteoporosis without current pathological fracture; W19.XXXA Unspecified fall, initial encounter; Z98.1 Arthrodesis status; Z87.891 Personal history of nicotine dependence; Z28.21 Immunization not carried out because of patient refusal
CPT/HCPCS: 36415; 73502; 80048; 80053; 81001; 82306; 83735; 84100; 84484; 85025; 85610; 85730; 86850; 86900; 86901; 87086; 87186; 93005; 97110; 97161; 97166; 97530; 97535; 99199; A9270; C1713; J0330; J0690; J0696; J1100; J2250; J2270; J2405; J2704; J3010; J3370; J7030; J7120